=== PATIENT | male | born 1995 | race Caucasian/White ===

== ENCOUNTER 2021-06-08 10:24 | Emergency (ER) | payer OTHER ==
[~2021-06-08] VITALS: Ht 182.9 cm; Wt 86.2 kg
[2021-06-08] MEDS ORDERED: DEPAKOTE PO (10:34)
[2021-06-08] MEDS ORDERED: OMEPRAZOLE40 MG PO (10:34)
[2021-06-08] MEDS ORDERED: DEPAKOTE250 MG PO (10:35)
[2021-06-08 10:56] LABS: ABSOLUTE BASOPHILS 0.1 thou/uL (0.0-0.2); ABSOLUTE EOSINOPHILS 0.2 thou/uL (0.0-0.7); ABSOLUTE LYMPHOCYTES 1.2 thou/uL (0.8-5.3); ABSOLUTE MONOCYTES 0.4 thou/uL (0.0-1.2); ABSOLUTE NEUTROPHILS 3.3 thou/uL (1.6-8.1); EOSINOPHILS 3.1 %; HEMATOCRIT 47.7 % (42.0-52.0); HEMOGLOBIN 16.4 gm/dL (14.0-18.0); LYMPHOCYTES 24.3 %; MCH 30.7 pg (26.0-34.0); MCHC 34.3 g/dL (28.0-37.0); MCV 89.5 fL (80.0-100.0); MONOCYTES 7.5 %; MPV 8.5 fl. (7.2-11.1); NUCLEATED RBCS 0 /100WBC; PLATELET COUNT* 227 thou/uL (150-400); POLYS 64.1 %; RBC 5.32 mil/uL (4.50-6.00); RDW-CV 12.9 % (10.5-14.5); WBC 5.1 thou/uL (4.0-11.0)
[2021-06-08 11:04] LABS: CALCIUM 9.5 mg/dL (8.5-10.1); CREATININE 1.1 mg/dL (0.6-1.3)
[2021-06-08 11:09] LABS: ALBUMIN 4.8 g/dL (3.4-5.0); TOTAL BILIRUBIN 0.6 mg/dL (<0.1-1.0); TOTAL PROTEIN 8.5 g/dL (6.4-8.2)
[2021-06-08 11:10] LABS: URINE BILIRUBIN NEGATIVE (Negative); URINE BLOOD NEGATIVE (Negative); URINE CLARITY CLEAR; URINE COLOR YELLOW; URINE GLUCOSE-RANDOM NEGATIVE (Negative); URINE KETONES NEGATIVE (Negative); URINE LEUKOCYTES-REFLEX NEGATIVE (Negative); URINE NITRITE-REFLEX NEGATIVE (Negative); URINE PROTEIN NEGATIVE (Negative); URINE SPECIFIC GRAVITY >= 1.030 (1.005-1.030); URINE UROBILINOGEN 0.2 E.U./dl (0.2-1.0)
[2021-06-08 11:18] LABS: AMP/METHAMP Negative (Negative); BARBITURATES Negative (Negative); BENZODIAZEPINES Negative (Negative); COCAINE Negative (Negative); METHADONE Negative (Negative); OPIATES Negative (Negative); PCP Negative (Negative); THC Negative (Negative)
[2021-06-08] MEDS ORDERED: DIVALPROEX SOD500 M1 PO ×2 (11:33→13:22)
[2021-06-08 13:47] VITALS: BP 102/76
--- NOTE | 2021-06-09 15:21 | EKG ---
[place] [address] ELECTROCARDIOGRAM REPORT Name: NILDA VORA Room: [facility]#: [id number] Admission: 06/08/21 Attend Phys: Discharge: 06/08/21 Date of : [birth year] Date of Service: 06/08/21 1044 Report #: [id number] THIS REPORT FOR: //name// [facility] ED Test Date: 2021-06-08 Test Time: 10:44:04 Pat Name: NILDA VORA Department: Room: Gender: Valver: : 1995 Requested By: Sami Barba Order Number: [id number] MD: Satinder Roche Measurements Intervals [place] Rate: 76 P: [place]: QRS: 13 QRSD: 85 T: QT: 428 QTc: 482 Interpretive Statements Sinus rhythm Baseline artifact No previous ECG available for comparison Electronically Signed On 06-09-2021 15:21:38 CDT by Satinder Roche [email or web address] <ELECTRONICALLY SIGNED> By: Satinder Roche MD, [facility] 06/09/21 1521 1044 1044 Satinder Roche MD, FACC /EPI
--- NOTE | 2021-06-09 15:22 | EKG ---
[place] [address] ELECTROCARDIOGRAM REPORT Name: NILDA VORA Room: [facility]#: [id number] Admission: 06/08/21 Attend Phys: Discharge: 06/08/21 Date of : [birth year] Date of Service: 06/08/21 1101 Report #: [id number] THIS REPORT FOR: //name// [facility] ED Test Date: 2021-06-08 Test Time: 11:01:08 Pat Name: NILDA VORA Department: Room: Gender: Features Reporter: : 1995 Requested By: Sami Barba Order Number: [id number] MD: Satinder Roche Measurements Intervals [place] Rate: 62 P: 4 MN: 117 QRS: -7 QRSD: 86 T: -5 QT: 353 QTc: 359 Interpretive Statements Sinus rhythm Borderline short MN interval LVH by voltage Inferior infarct, old Baseline wander in lead(s) V2,V3 Compared to ECG 06/08/2021 10:44:04 Left ventricular hypertrophy now present Myocardial infarct finding now present Atrial flutter no longer present Ventricular premature complex(es) no longer present Early repolarization no longer present Possible ischemia no longer present Electronically Signed On 06-09-2021 15:22:02 CDT by Satinder Roche [email or web address] <ELECTRONICALLY SIGNED> By: Satinder Roche MD, [facility] 06/09/21 1522 1101 1101 Satinder Roche MD, [facility] /EPI
== END 2021-06-08 13:49 | disposition home or self-care (01) ==
LOC: M.ERS 10:24
PROVIDERS: Emergency Medicine Emergency Medical Services
DX: R56.9 Unspecified convulsions (principal); M25.511 Pain in right shoulder; Z79.899 Other long term (current) drug therapy